=== PATIENT | male | born 1965 | race Caucasian/White ===

== ENCOUNTER 2022-01-01 06:23 | Observation (INO) | payer OTHER ==
[2022-01-01 07:29] LABS: Acetaminophen Less than 10.0 mcg/mL (10.0-30.0); Alcohol 85 mg/dL (Less than 10); Salicylate Less than 8.0 mg/dL (15.0-30.0)
[2022-01-01 07:30] LABS: ALT (SGPT) 16 U/L (8-55); AST (SGOT) 19 U/L (5-34); Alkaline Phosphatase 60 U/L (40-110); Anion Gap 18 mmol/L (10-20); BUN (Urea Nitrogen) 12 mg/dL (8.4-25.7); Bilirubin, Total 0.5 mg/dL (0.2-1.2); Calc. Creatinine Clearance 0 mL/min (70-130); Calcium 7.9 mg/dL (7.8-10.44); Carbon Dioxide 17 mmol/L (22-29); Chloride 103 mmol/L (98-107); Estimated GFR 65; Globulin 2.8 g/dL (2.4-3.5); Glucose 287 mg/dL (70-105); Potassium 3.4 mmol/L (3.5-5.1); Protein, Total 6.8 g/dL (6.0-8.3); Sodium 135 mmol/L (136-145)
[2022-01-01 08:04] LABS: #Lymphocytes 0.8 thou/uL (1.20-3.40); #Monocytes 0.3 thou/uL (0.11-0.59); #Neutrophils 4.7 thou/uL (1.40-6.50); %Basophils 0.6 % (0.0-1.0); %Eosinophils 0.8 % (0.0-10.0); %Lymphocytes 13.3 % (21.0-51.0); %Monocytes 4.3 % (0.0-10.0); %Neutrophils 80.9 % (42.0-75.0); Mean Corpuscular HGB CONC 34.4 g/dL (32.0-36.0); Mean Corpuscular Hemoglobin 33.8 pg (27.0-31.0); Mean Corpuscular Volume 98.2 fl (78.0-98.0); Mean Platelet Volume 6.7 fL (7.4-10.4); Platelet Count 208 thou/uL (130-400); RBC Distribution Width 12.6 % (11.5-14.5); Red Blood Cell (RBC) Count 4.13 mill/uL (4.70-6.10); White Blood Cell (WBC) Count 5.8 thou/uL (4.8-10.8)
[2022-01-01] MEDS ORDERED: Acetaminophen 325 MG TAB PO PRN (08:55)
[2022-01-01] MEDS ORDERED: Acetaminophen 650 MG Suppository PR PRN (08:55)
[2022-01-01] MEDS ORDERED: Ondansetron PF 4 MG/2 ML Vial IVP PRN (08:55)
[2022-01-01] MEDS ORDERED: Ondansetron ODT 4 MG TAB PO PRN ×2 (08:55→08:58)
[2022-01-01] MEDS ORDERED: Dextrose 50% Abboject 50 ML SYRINGE SLOW IVP PRN (08:57)
[2022-01-01] MEDS ORDERED: Dextrose 5% in Water 1,000 ML IV PRN (08:57)
[2022-01-01] MEDS ORDERED: Electrolyte Replacement Protocol 1 EACH FS SCH (09:00)
[2022-01-01 09:04] LABS: Troponin I Less than 0.010 ng/mL (< 0.028)
[2022-01-01 09:53] LABS: Free T4 (Free Thyroxine) 0.51 ng/dL (0.70-1.48)
[2022-01-01] MEDS ORDERED: Lorazepam 2 MG/ML VIAL IM PRN (11:00)
[2022-01-01] MEDS ORDERED: Aspirin 81 mg Enteric Coated Tablet PO SCH (11:00)
[2022-01-01] MEDS ORDERED: Lorazepam 1 MG TAB PO PRN (11:00)
[2022-01-01] MEDS ORDERED: Potassium Chloride 20 MEQ TAB PO SCH (11:00)
[2022-01-01] MEDS ORDERED: Multivit, Therapeutic 1 TAB PO SCH (11:00)
[2022-01-01] MEDS ORDERED: Folic Acid 1 MG TAB PO SCH (11:00)
[2022-01-01] MEDS ORDERED: Electrolyte Replacement Protocol FS PRN (11:00)
[2022-01-01] MEDS: Thiamine HCl 200 MG/2 ML VIAL SLOW IVP SCH (11:28)
[2022-01-01] MEDS: Sodium Chloride 0.9% 1,000 ML IV SCH ×2 (11:35→22:32)
[2022-01-01] MEDS ORDERED: Magnesium 2 GM/50 ML(in water) 2 GM in Premix Bag 1 BAG IVPB SCH (13:00)
[2022-01-01 15:21] LABS: Syphilis Antibody Nonreactive (Nonreactive); Syphilis Antibody Index 0.02 S/CO (<1.00 Non-Reactive)
[2022-01-01 15:28] LABS: Troponin I Less than 0.010 ng/mL (< 0.028)
[2022-01-01 16:13] LABS: Potassium 4.3 mmol/L (3.5-5.1)
[2022-01-01] MEDS: metFORMIN 500 MG TAB PO SCH (16:55)
[2022-01-01] MEDS: Atorvastatin Calcium 40 MG TAB PO SCH (20:17)
[2022-01-01] MEDS: Insulin Regular 300 UNITS/3 ML VIAL SC PRN (20:18)
[2022-01-02] MEDS ORDERED: PARoxetine 20 MG TAB ONE (04:59)
[2022-01-02] MEDS ORDERED: Pancrelipase DR 12,000 1 CAP ONE (04:59)
[2022-01-02] MEDS: Insulin Regular 300 UNITS/3 ML VIAL SC PRN ×4 (05:38→20:23)
[2022-01-02] MEDS: Levothyroxine 175 MCG TAB PO SCH (05:41)
[2022-01-02] MEDS ORDERED: Levothyroxine Sodium 88 MCG TAB PO SCH (06:00)
[2022-01-02 06:20] LABS: #Basophils 0.1 thou/uL (0.0-0.2); #Eosinphils 0.1 thou/uL (0.0-0.7); #Lymphocytes 1.3 thou/uL (1.20-3.40); #Monocytes 0.3 thou/uL (0.11-0.59); %Basophils 1.5 % (0.0-1.0); %Eosinophils 1.5 % (0.0-10.0); %Lymphocytes 26.9 % (21.0-51.0); %Monocytes 6.9 % (0.0-10.0); %Neutrophils 63.2 % (42.0-75.0); Hemoglobin 14.9 g/dL (14.0-18.0); Mean Corpuscular HGB CONC 34.6 g/dL (32.0-36.0); Mean Corpuscular Hemoglobin 34.4 pg (27.0-31.0); Mean Corpuscular Volume 99.4 fl (78.0-98.0); Mean Platelet Volume 6.9 fL (7.4-10.4); Platelet Count 205 10x3/uL (130-400); RBC Distribution Width 12.4 % (11.5-14.5); Red Blood Cell (RBC) Count 4.34 mill/uL (4.70-6.10); White Blood Cell (WBC) Count 4.7 10x3/uL (4.8-10.8)
[2022-01-02 06:44] LABS: Anion Gap 12 mmol/L (10-20); BUN (Urea Nitrogen) 13 mg/dL (8.4-25.7); Calc. Creatinine Clearance 6 mL/min (70-130); Calcium 7.4 mg/dL (7.8-10.44); Carbon Dioxide 25 mmol/L (22-29); Cardiac Risk 9.5 (Less than 4.5); Chloride 101 mmol/L (98-107); Cholesterol 390 mg/dl (< 200 Desired); Estimated GFR 82; Glucose 232 mg/dL (70-105); HDL Cholesterol 41 mg/dL (>60 Neg Risk); Potassium 3.8 mmol/L (3.5-5.1); Sodium 134 mmol/L (136-145)
[2022-01-02 06:54] LABS: Triglycerides 1021 mg/dL (Less than 150)
[2022-01-02 07:21] LABS: Phosphorus 2.8 mg/dL (2.3-4.7)
[2022-01-02] MEDS ORDERED: Magnesium 2 GM/50 ML(in water) 2 GM in Premix Bag 1 BAG IVPB SCH (08:00)
[2022-01-02] MEDS: Multivit, Therapeutic 1 TAB PO SCH (08:49)
[2022-01-02] MEDS: metFORMIN 500 MG TAB PO SCH ×2 (08:49→17:17)
[2022-01-02] MEDS: Folic Acid 1 MG TAB PO SCH (08:49)
[2022-01-02] MEDS: Aspirin 325 mg Enteric Coated Tablet PO SCH (08:49)
[2022-01-02] MEDS ORDERED: FLU VACC QS2022-23(6MOS UP)/PF 60 MCG/0.5 ML SYRINGE IM ONE (09:00)
[2022-01-02] MEDS ORDERED: Aspirin 81 mg Enteric Coated Tablet PO SCH (09:00)
[2022-01-02] MEDS: Sodium Chloride 0.9% 1,000 ML IV SCH ×3 (09:11→20:22)
[2022-01-02] MEDS ORDERED: Lorazepam 1 MG TAB PO PRN (11:01)
[2022-01-02] MEDS: Thiamine HCl 200 MG/2 ML VIAL SLOW IVP SCH (11:22)
[2022-01-02] MEDS: hydrALAZINE 20 MG/ML VIAL SLOW IVP PRN ×2 (12:45→20:22)
[2022-01-02] MEDS ORDERED: cloNIDine 0.1 MG TAB PO SCH (17:45)
[2022-01-02] MEDS ORDERED: Lisinopril 20 MG TAB PO SCH (18:00)
[2022-01-02] MEDS: Atorvastatin Calcium 40 MG TAB PO SCH (20:22)
[2022-01-03 05:23] LABS: #Eosinphils 0.1 thou/uL (0.0-0.7); #Lymphocytes 1.1 thou/uL (1.20-3.40); #Monocytes 0.3 thou/uL (0.11-0.59); %Basophils 0.5 % (0.0-1.0); %Eosinophils 2.5 % (0.0-10.0); %Lymphocytes 24.8 % (21.0-51.0); %Monocytes 6.4 % (0.0-10.0); %Neutrophils 65.7 % (42.0-75.0); Hemoglobin 14.3 g/dL (14.0-18.0); Mean Corpuscular HGB CONC 35.1 g/dL (32.0-36.0); Mean Corpuscular Volume 99.6 fl (78.0-98.0); Mean Platelet Volume 6.9 fL (7.4-10.4); Platelet Count 187 10x3/uL (130-400); RBC Distribution Width 12.4 % (11.5-14.5); White Blood Cell (WBC) Count 4.6 10x3/uL (4.8-10.8)
[2022-01-03] MEDS: Levothyroxine 175 MCG TAB PO SCH (05:37)
[2022-01-03] MEDS: Insulin Regular 300 UNITS/3 ML VIAL SC PRN ×3 (05:41→17:17)
[2022-01-03] MEDS: Sodium Chloride 0.9% 1,000 ML IV SCH (05:41)
[2022-01-03 05:47] LABS: Anion Gap 16 mmol/L (10-20); BUN (Urea Nitrogen) 10 mg/dL (8.4-25.7); Calc. Creatinine Clearance 99 mL/min (70-130); Carbon Dioxide 22 mmol/L (22-29); Chloride 102 mmol/L (98-107); Estimated GFR 77; Glucose 226 mg/dL (70-105); Magnesium 1.8 mg/dL (1.6-2.6); Potassium 3.5 mmol/L (3.5-5.1); Sodium 136 mmol/L (136-145)
[2022-01-03] MEDS: hydrALAZINE 20 MG/ML VIAL SLOW IVP PRN (05:47)
[2022-01-03] MEDS ORDERED: Magnesium 2 GM/50 ML(in water) 2 GM in Premix Bag 1 BAG IVPB SCH (06:00)
[2022-01-03] MEDS ORDERED: Potassium Chloride 20 MEQ TAB PO SCH (06:00)
[2022-01-03] MEDS ORDERED: Glimepiride 2 MG TAB PO SCH (07:30)
[2022-01-03] MEDS: metFORMIN 500 MG TAB PO SCH ×2 (08:38→17:17)
[2022-01-03] MEDS: Folic Acid 1 MG TAB PO SCH (08:38)
[2022-01-03] MEDS: Multivit, Therapeutic 1 TAB PO SCH (08:39)
[2022-01-03] MEDS: Aspirin 325 mg Enteric Coated Tablet PO SCH (08:39)
[2022-01-03 08:40] LABS: Hemoglobin A1c 9.1 % (4.0-6.0)
[2022-01-03] MEDS ORDERED: Lisinopril 20 MG TAB PO SCH ×2 (09:00)
[2022-01-03] MEDS ORDERED: Amlodipine 5 MG TAB PO SCH (09:00)
[2022-01-03] MEDS ORDERED: Lorazepam 1 MG TAB PO PRN (11:00)
[2022-01-03 11:30] LABS: Potassium 3.9 mmol/L (3.5-5.1)
[2022-01-03] MEDS: Thiamine HCl 200 MG/2 ML VIAL SLOW IVP SCH (13:06)
[2022-01-03 16:01] VITALS: BP 149/105; TEMP 98.5
[2022-01-04] MEDS ORDERED: Thiamine 100 MG TAB PO SCH (09:00)
[2022-01-04] MEDS ORDERED: Lorazepam 0.5 MG TAB PO PRN (11:00)
== END 2022-01-03 17:50 | disposition short-term general hospital (02) ==
LOC: ERS 06:23 → NEURO 10:34
PROVIDERS: ADMIT Internal Medicine; ATTEND Internal Medicine
DX: G45.9 Transient cerebral ischemic attack, unspecified (principal); T14.91XA Suicide attempt, initial encounter; F32.A Depression, unspecified; E89.0 Postprocedural hypothyroidism; E11.9 Type 2 diabetes mellitus without complications; I10 Essential (primary) hypertension; I25.10 Atherosclerotic heart disease of native coronary artery without angina pectoris; F10.10 Alcohol abuse, uncomplicated; F17.220 Nicotine dependence, chewing tobacco, uncomplicated; E78.5 Hyperlipidemia, unspecified; Z79.84 Long term (current) use of oral hypoglycemic drugs; Z79.890 Hormone replacement therapy; Z79.899 Other long term (current) drug therapy; Z95.5 Presence of coronary angioplasty implant and graft; Z20.822 Contact with and (suspected) exposure to COVID-19; Y90.4 Blood alcohol level of 80-99 mg/100 ml
CPT/HCPCS: 36415; 36416; 70551; 80048; 80053; 80061; 80307; 83036; 83735; 84100; 84439; 84443; 84481; 84484; 85025; 86780; 93005; 93306; 93880; 96374; 96375; 96376; G0378; J0360; J1815; J3411; J3475; J7050; U0003; U0005